=== PATIENT | male | born 1940 | race American Indian/Alaskan Native ===

== ENCOUNTER 2017-12-01 07:14 | Outpatient (CLI) | payer MEDICARE ==
--- NOTE | 2017-12-01 08:10 | Cat Scan Report ---
CT abdomen and pelvis without contrast: Hydronephrosis. Transverse images were obtained from the low chest and ischium. Coronal and sagittal 2-D reformatted images included. The visualized lung bases are clear. The bhakta of the distal esophagus appear somewhat thickened raising suspicion of a hiatus hernia. 3 subcentimeter sized cysts are scattered in the right lobe of the liver. The abdominal organs are not otherwise remarkable. The gallbladder is present. The left kidney is anteriorly rotated but not otherwise remarkable. The right kidney is diffusely hydronephrotic with a markedly thin cortical rim. Calculi are present in the lower half of the kidney within the dilated system. The proximal ureter is diffusely dilated with dependent calcification along its posterior lumen several centimeters proximal to the level of the iliac crests where there is a large intraluminal calculus. The distal ureter is decompressed. The urinary bladder is unremarkable. The unopacified bowel and mesentery appears grossly normal except for the presence of a small umbilical hernia containing mesenteric fat. Diffuse spondylosis is present from the lower thoracic spine through the lumbar levels with markedly degenerative discs from L2-S1. Impressions: 1. Right ureteral calculus with proximal nephroureteral obstruction an intrarenal calculus. The markedly thinned parenchyma is consistent with a long-standing obstruction. 2. 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
== END 2017-12-01 07:15 | disposition home or self-care (01) ==
LOC: CT 07:14
PROVIDERS: ATTEND Urology
DX: N20.1 Calculus of ureter (principal); M47.895 Other spondylosis, thoracolumbar region
CPT/HCPCS: 74176